=== PATIENT | female | born 1975 | race Caucasian/White ===

== ENCOUNTER 2022-10-19 02:25 | Inpatient (IN) ==
[2022-10-19] MEDS ORDERED: SODIUM CHLORIDE 0.9% 1000ML 1,000 ML IV STA (02:55)
[2022-10-19] MEDS ORDERED: ONDANSETRON INJ 2 MG/ML 2 ML VIAL IV STA (02:55)
[2022-10-19] MEDS ORDERED: MoRPHine SULFATE 4 MG/ML 1 ML CARP\\VIAL IV STA ×2 (02:55→05:37)
--- NOTE | 2022-10-19 02:59 | Emergency Department Note ---
History of Present Illness General Chief complaint: Abdominal Pain Stated complaint: ABD Time Seen by Provider: 10/19/22 02:49 History of Present Illness This 47-year-old presents to the ER complaining of abdominal pain tonight Location: Upper abdomen Quality: Painful Severity: Moderate Duration: Tonight Timing: Tonight Context: Patient was concerned and came in Modifying factors: better with rest; worse with palpation Patient had a hoagie and Oreo cookies tonight for dinner. Pain started about an hour ago. Patient states she is healthy with no active medical problems. No alcohol or drug use. Patient denies chest pain, dyspnea, fevers, urinary symptoms. Home Medications Medication Instructions Recorded Confirmed Type multivitamin with minerals-folic 500 tab PO DAILY 10/19/22 10/19/22 History acid 200 mcg chewable tablet (Multivitamin Gummies) Allergies Allergy/AdvReac Type Severity Reaction Status Date / Time No Known Allergies Allergy Verified 12/30/02 19:13 Past Med/Surg History Medical History No acute medical problems Surgical History (Updated 10/19/22 @ 02:57 by Letitia Blankenship PA-C) No pertinent past surgical history Social History Smoking Status: Never smoker Preferred Language: Latvian Feels Safe at Home: Yes Review of Systems A total of 10 systems reviewed and were otherwise negative Physical Exam Vital Signs Vital Signs - 24 hr 10/19/22 02:28 10/19/22 03:06 10/19/22 03:28 Temperature 36.6 C Temperature Source Temporal Artery Scan Pulse Rate 82 Pulse Rate [Finger] 69 Pulse Rate from SpO2 Sensor Pulse Rhythm Regular Pulse Strength Normal Respiratory Rate 20 20 Respiratory Effort / Characteristics Non-Labored Spontaneous Non-Labored Spontaneous Respiratory Depth Normal Normal Respiratory Pattern Regular Blood Pressure 129/83 Blood Pressure [Right Arm] 121/71 Blood Pressure Mean 98 Blood Pressure Mean [Right Arm] 87 Blood Pressure Position Sitting Pulse Oximetry 98 99 100 Oxygen Delivery Method Room Air Room Air Room Air Sepsis Recent Fever Within 48 Hours No Sepsis New/Unexplained Change in Mental Status N/A Sepsis Action Taken by Nursing No Action Required 10/19/22 05:07 10/19/22 05:34 Temperature Temperature Source Pulse Rate 71 Pulse Rate [Finger] 77 Pulse Rate from SpO2 Sensor 74 Pulse Rhythm Pulse Strength Respiratory Rate 18 19 Respiratory Effort / Characteristics Non-Labored Spontaneous Respiratory Depth Normal Respiratory Pattern Blood Pressure 101/66 Blood Pressure [Right Arm] 121/62 Blood Pressure Mean 77 Blood Pressure Mean [Right Arm] 81 Blood Pressure Position Pulse Oximetry 99 98 Oxygen Delivery Method Room Air Room Air Sepsis Recent Fever Within 48 Hours Sepsis New/Unexplained Change in Mental Status Sepsis Action Taken by Nursing VITALS: Vitals are noted on the nurse's note and reviewed by myself. Vital signs stable. GENERAL: Pleasant patient, in no acute distress, nondiaphoretic, well-developed well-nourished. SKIN: The skin was without rashes, erythema, edema, or bruising. There is no tenting of the skin. Capillary reflex less than 2 seconds. HEAD: Normocephalic atraumatic. EARS: External auditory canals clear, EYES: Pupils equal round and reactive to light and accommodation. Conjunctivae without injection, sclerae without icterus. Extraocular movements intact. NOSE: Patent, turbinates without inflammation or discharge. MOUTH: Mucous membranes moist. Pharynx without erythema or exudate. Uvula midline. Airway patent. Tongue does not deviate. NECK: Supple without nuchal rigidity. No lymphadenopathy. No thyromegaly. Cervical spine is nontender. No JVD. HEART: Regular rate and rhythm LUNGS: Clear to auscultation bilaterally without wheezes, rales or rhonchi. No retractions or accessory muscle use. ABDOMEN: Positive bowel sounds x 4. Normal tympanic percussion. Soft, tender upper abdomen without masses or organomegaly. No guarding or rebound tenderness. No CVA tenderness MUSCULOSKELETAL: No muscle atrophy, erythema, or edema noted. NEURO: Patient was alert and oriented to person place and time. Normal sensation to light and sharp touch. No focal neurological deficits. Course Administered Medications Lactated Ringer's (Lr) 1,000 mls @ 999 mls/hr IV .Q1H1M ONE Stop: 10/19/22 06:33 Last Admin: 10/19/22 06:08 Dose: 999 mls/hr Documented By: [facility] Discontinued Medications Sodium Chloride (Nss 1000ml) 1,000 mls @ 999 mls/hr IV .Q1H1M STA Stop: 10/19/22 03:55 Last Infusion: 10/19/22 04:26 Dose: 0 mls/hr Documented By: Admin: 10/19/22 03:03 Dose: 999 mls/hr Documented By: CARRIE Ioversol (Optiray 350 100ml) 87 ml IV ONCE ONE Stop: 10/19/22 04:41 Last Admin: 10/19/22 04:34 Dose: 87 ml Documented By: MEJIA Morphine Sulfate (Morphine Sulfate 4 Mg/Ml 1 Ml Carp\Vial) 4 mg IV NOW STA Stop: 10/19/22 02:56 Last Admin: 10/19/22 03:03 Dose: 4 mg Documented By: CARRIE Morphine Sulfate (Morphine Sulfate 4 Mg/Ml 1 Ml Carp\Vial) 4 mg IV NOW STA Stop: 10/19/22 05:38 Last Admin: 10/19/22 05:59 Dose: 4 mg Documented By: FARIHA Ondansetron HCl (Ondansetron Inj 2 Mg/Ml 2 Ml Vial) 4 mg IV NOW STA Stop: 10/19/22 02:56 Last Admin: 10/19/22 03:03 Dose: 4 mg Documented By: CARRIE Potassium Chloride (Potassium Chloride Crtab 20 Meq Tabcr) 20 meq PO NOW STA Stop: 10/19/22 05:41 Last Admin: 10/19/22 05:58 Dose: 20 meq Documented By: FARIHA Medical Decision Making Medical Records Attestation: I reviewed the patient's medical records. Home Medications Current Medication List: was personally reviewed by me Laboratory Data Attestation: I reviewed the patient's lab results. Result diagrams: 10/19/22 02:45 10/19/22 02:45 Lab Results 10/19/22 10/19/22 10/19/22 Range/Units 02:45 02:45 02:45 WBC 14.25 H (4.8-10.8) K/ul RBC 4.93 (3.93-5.22) M/uL Hgb 14.2 (12.0-16.0) g/dl Hct 43.0 (34.1-44.9) % MCV 87.2 (80.0-100.0) fL MCH 28.8 (25.0-34.0) pg MCHC 33.0 (32.0-36.0) g/dL RDW Std Deviation 40.1 (36.4-46.3) fL RDW Coeff of [place] 12.6 (11.5-14.5) % Plt Count 397 (130-400) K/uL MPV 10.5 (9.4-12.3) fL Immature Gran % (Auto) 0.7 % Neut % (Auto) 76.7 % Lymph % (Auto) 16.4 % [place] % (Auto) 4.2 % Eos % (Auto) 1.6 % Baso % (Auto) 0.4 % Neut # (Auto) 10.93 H (1.4-6.5) K/uL Lymph # (Auto) 2.33 (1.2-3.4) K/uL [place] # (Auto) 0.60 (0.24-0.82) K/uL Eos # (Auto) 0.23 (0-0.50) K/uL Baso # (Auto) 0.06 (0-0.2) K/uL Immature Gran # (Auto) 0.10 H (0.00-0.02) K/uL Sodium 138 (136-145) mmol/L Potassium 3.3 L (3.5-5.1) mmol/L Chloride 104 (98-107) mmol/L Carbon Dioxide 26 (21-32) mmol/L Anion Gap 8 (3-11) BUN 20 (6-23) mg/dl Creatinine 0.81 (0.6-1.2) mg/dl Est Cr Clr Drug Dosing 86.9 ml/min Est GFR ( Amer) 100.2 ml/min Est GFR (Non-Af Amer) 86.5 ml/min BUN/Creatinine Ratio 24.7 H (10-20) Glucose 169 H (70-99(Fasting)) mg/dl Calcium 9.0 (8.5-10.1) mg/dl Total Bilirubin 0.3 (0.2-1.0) mg/dl AST 30 (13-39) U/L ALT 27 (7-52) U/L Alkaline Phosphatase 58 (34-104) U/L Troponin I High Sens < 2.3 (0-14) pg/ml Total Protein 7.3 (6.0-8.3) gm/dl Albumin 4.3 (3.4-5.0) gm/dl Globulin 3.0 (2.5-4.0) gm/dl Albumin/Globulin Ratio 1.4 (0.9-2) Lipase 97928 H (11-82) U/L Urine Color Yellow Urine Appearance Clear (Clear) Urine pH 5.0 (4.5-7.5) Ur Specific [place] 1.023 (1.000-1.030) Urine Protein Trace H (Negative) Urine Glucose (UA) Negative (Negative) Urine Ketones Negative (Negative) Urine Blood 2+ H (Negative) Urine Nitrite Negative (Negative) Urine Bilirubin Negative (Negative) Urine Urobilinogen Negative (Negative) Ur Leukocyte Esterase Negative (Negative) Urine WBC (Auto) 1-5 (0-5) /hpf Urine RBC (Auto) 10-30 H (0-4) /hpf U Hyaline Cast (Auto) 1-5 (0-5) /lpf U Epithel Cells (Auto) >30 H (0-5) /lpf Urine Bacteria (Auto) Negative (Negative) POC Ur Test (NEG) SARS-CoV-2, RNA, NAAT (NEGATIVE) 10/19/22 10/19/22 Range/Units 02:45 03:00 WBC (4.8-10.8) K/ul RBC (3.93-5.22) M/uL Hgb (12.0-16.0) g/dl Hct (34.1-44.9) % MCV (80.0-100.0) fL MCH (25.0-34.0) pg MCHC (32.0-36.0) g/dL RDW Std Deviation (36.4-46.3) fL RDW Coeff of [place] (11.5-14.5) % Plt Count (130-400) K/uL MPV (9.4-12.3) fL Immature Gran % (Auto) % Neut % (Auto) % Lymph % (Auto) % [place] % (Auto) % Eos % (Auto) % Baso % (Auto) % Neut # (Auto) (1.4-6.5) K/uL Lymph # (Auto) (1.2-3.4) K/uL [place] # (Auto) (0.24-0.82) K/uL Eos # (Auto) (0-0.50) K/uL Baso # (Auto) (0-0.2) K/uL Immature Gran # (Auto) (0.00-0.02) K/uL Sodium (136-145) mmol/L Potassium (3.5-5.1) mmol/L Chloride (98-107) mmol/L Carbon Dioxide (21-32) mmol/L Anion Gap (3-11) BUN (6-23) mg/dl Creatinine (0.6-1.2) mg/dl Est Cr Clr Drug Dosing ml/min Est GFR ( Amer) ml/min Est GFR (Non-Af Amer) ml/min BUN/Creatinine Ratio (10-20) Glucose (70-99(Fasting)) mg/dl Calcium (8.5-10.1) mg/dl Total Bilirubin (0.2-1.0) mg/dl AST (13-39) U/L ALT (7-52) U/L Alkaline Phosphatase (34-104) U/L Troponin I High Sens (0-14) pg/ml Total Protein (6.0-8.3) gm/dl Albumin (3.4-5.0) gm/dl Globulin (2.5-4.0) gm/dl Albumin/Globulin Ratio (0.9-2) Lipase (11-82) U/L Urine Color Urine Appearance (Clear) Urine pH (4.5-7.5) Ur Specific [place] (1.000-1.030) Urine Protein (Negative) Urine Glucose (UA) (Negative) Urine Ketones (Negative) Urine Blood (Negative) Urine Nitrite (Negative) Urine Bilirubin (Negative) Urine Urobilinogen (Negative) Ur Leukocyte Esterase (Negative) Urine WBC (Auto) (0-5) /hpf Urine RBC (Auto) (0-4) /hpf U Hyaline Cast (Auto) (0-5) /lpf U Epithel Cells (Auto) (0-5) /lpf Urine Bacteria (Auto) (Negative) POC Ur Test NEG (NEG) SARS-CoV-2, RNA, NAAT NEGATIVE (NEGATIVE) Imaging Data Attestation: I personally reviewed and interpreted this imaging study as follows: MDM Narrative Prior records/ancillary studies reviewed. Triage Nursing notes reviewed. Additional history obtained from nursing The patient's history was concerning for abdominal pain. Differential diagnosis: Etiologies such as appendicitis, diverticulitis, PUD, biliary pathology, UTI, pancreatitis, obstruction, mesenteric ischemia, aortic pathology, infections, inflammatory bowel disease, renal colic, as well as others were entertained. Physical examination findings: As above. ER treatment provided: An order was placed for continuous cardiac monitoring. The monitor shows a rate of 60-100 with a sinus rhythm. Morphine Zofran IV fluids On reassessment the patient felt better. Diagnostics interpreted by me: ECG: Ordered for upper abdominal pain EKG: Normal sinus, normal intervals, no acute ST-T wave changes. Impression normal sinus rhythm interpreted by myself I think arrhythmia is unlikely. EKG shows normal sinus rhythm with no interval abnormalities such as QT prolongation or WPW. There are no findings to suggest Brugada syndrome. Cardiac monitoring in the emergency department reveals no tachycardic or bradycardic dysrhythmia. Hypertrophic cardiomyopathy was considered but there are no clear historical elements pointing toward this. EKG is not suggestive. The QRS voltage is not extremely large and there are no sugg estive Q waves. The labs revealed elevated lipase. Leukocytosis, negative troponin Imaging studies: as above Consultation: A consultation was placed with the hospitalist. The case was discussed and diagnostics were reviewed. The patient was evaluated in the ER for further treatment. Exam and history seem consistent with pancreatitis. Patient was medicated as above. She states she does not drink alcohol. She does not take any medicines. No history of this. Medicine is consulted. She will be evaluated for admission. By the evaluation outlined above emergent etiologies such as a ppendicitis, diverticulitis, PUD, biliary pathology, UTI, obstruction, mesenteric ischemia, aortic pathology, infections, inflammatory bowel disease, renal colic, as well as others were deemed relatively unlikely. The pt informed about the findings as listed above. All questions were answered and pleased with the treatment. The chart was completed utilizing [employer] Speech voice recognition software. Grammatical errors, random word insertions, pronoun errors, and incomplete sentences are an occassional consequence of this system due to software limitations, ambient noise, and hardware issues. Any formal questions or concerns about the content, text, or information contained within the body of this dictation should be directly addressed to the physician assistant import manager for clarification. Impression & Plan Pancreatitis Discharge Plan Visit Data Chief Complaint: Abdominal Pain Stated Complaint: ABD ED Provider: Marixa Butts ED Midlevel Provider: Letitia Blankenship Discharge Problem: Pancreatitis Patient Disposition: Admitted As Inpatient Condition: Good Forms Stand Alone Forms: [facility] [employer] Prescriptions Prescriptions: No Action Multivitamin Gummies 200 mcg Tablet,Chewable 500 tab PO DAILY Referrals Referrals: PCP,NO [Primary Care Provider] - : Pancreatitis Qualifiers: Chronicity: acute Pancreatitis type: unspecified pancreatitis type Acute pancreatitis complication: unspecified Qualified Code(s): K85.90 - Acute pancreatitis without necrosis or infection, unspecified
[2022-10-19 03:06] LABS: Basophils # (auto) 0.06 K/uL (0-0.2); Basophils % (auto) 0.4 %; Eosinophils # (auto) 0.23 K/uL (0-0.50); Eosinophils % (auto) 1.6 %; Hemoglobin 14.2 g/dl (12.0-16.0); Immature Granulocytes % (auto) 0.7 %; Lymphocytes # (auto) 2.33 K/uL (1.2-3.4); Lymphocytes % (auto) 16.4 %; Mean Corpuscular Hemoglobin 28.8 pg (25.0-34.0); Mean Corpuscular Volume 87.2 fL (80.0-100.0); Mean Platelet Volume 10.5 fL (9.4-12.3); Monocytes % (auto) 4.2 %; Neutrophils # (auto) 10.93 K/uL (1.4-6.5); Neutrophils % (auto) 76.7 %; Platelet Count 397 K/uL (130-400); RDW Coefficient of Variation 12.6 % (11.5-14.5); RDW Standard Deviation 40.1 fL (36.4-46.3); Red Blood Count 4.93 M/uL (3.93-5.22); White Blood Count 14.25 K/ul (4.8-10.8)
[2022-10-19 03:08] LABS: Appearance Urine Clear (Clear); Bacteria Urine Automated Negative (Negative); Bilirubin Urine Negative (Negative); Blood Urine 2+ (Negative); Color Urine Yellow; Epithelial Cell Urine Auto >30 /lpf (0-5); Glucose Urine UA Negative (Negative); Ketones Urine Negative (Negative); Leukocyte Esterase Urine Negative (Negative); Nitrite Urine Negative (Negative); Protein Urine Trace (Negative); Specific Gravity Urine 1.023 (1.000-1.030); Urobilinogen Urine Negative (Negative)
[2022-10-19 03:37] LABS: Troponin I High Sensitivity < 2.3 pg/ml (0-14)
[2022-10-19 03:53] LABS: Anion Gap 8 (3-11); BUN Creatinine Ratio 24.7 (10-20); Blood Urea Nitrogen 20 mg/dl (6-23); Carbon Dioxide 26 mmol/L (21-32); Chloride 104 mmol/L (98-107); Creatinine Clr Calc Pharmacy 86.9 ml/min; Est GFR (African American) 100.2 ml/min; Est GFR (Non-African American) 86.5 ml/min; Glucose 169 mg/dl (70-99(Fasting)); Potassium 3.3 mmol/L (3.5-5.1); Sodium 138 mmol/L (136-145)
[2022-10-19 04:19] LABS: Alanine Aminotransferase 27 U/L (7-52); Albumin Globulin Ratio 1.4 (0.9-2); Albumin Level 4.3 gm/dl (3.4-5.0); Alkaline Phosphatase 58 U/L (34-104); Aspartate Aminotransferase 30 U/L (13-39); Bilirubin,Total 0.3 mg/dl (0.2-1.0); Total Protein 7.3 gm/dl (6.0-8.3)
[2022-10-19] MEDS ORDERED: OPTIRAY 350 100ml IV ONE (04:40)
[2022-10-19 04:57] LABS: Lipase 14900 U/L (11-82)
[2022-10-19] MEDS ORDERED: LACTATED RINGER'S 1,000 ML IV ONE ×2 (05:33→06:52)
[2022-10-19] MEDS ORDERED: POTASSIUM CHLORIDE CRTAB 20 MEQ TABCR PO STA (05:40)
--- NOTE | 2022-10-19 06:08 | Ultrasound Report ---
ULTRASOUND RIGHT UPPER QUADRANT ABDOMEN CLINICAL HISTORY: Right upper quadrant abdominal pain. COMPARISON STUDY: No priors. TECHNIQUE: Real-time, grayscale, and color flow sonography of the right upper quadrant of the abdomen was performed. Images are reviewed in the transverse and longitudinal planes. FINDINGS: Liver: The liver is normal in size and echotexture. There is no intrahepatic biliary ductal dilatatio n. The main portal vein is patent. A 2.6 cm cyst is noted in the left lobe. Gallbladder: The gallbladder is normal in appearance. No gallstones are identified. There is no gallb ladder wall thickening or pericholecystic fluid. A sonographic Pearson's sign is reportedly absent. Th e common bile duct measures up to 0.3 cm in diameter. Pancreas: Visualized portions of the pancreatic head and body are normal in appearance. Right kidney: Survey images of the right kidney demonstrate normal size and echotexture. There is no hydronephrosis. Ascites: None. IMPRESSION: Unremarkable sonographic examination of the right upper quadrant. No gallstones are ident ified. ACT 112: Negative or not required by law. Electronically signed by: Jose Manuel Jefferson M.D. 10/19/2022 6:05 AM
--- NOTE | 2022-10-19 06:19 | CT Scan Report ---
CT SCAN OF THE ABDOMEN AND PELVIS WITH IV CONTRAST CLINICAL HISTORY: Mid abdominal pain. Nausea and vomiting. Diarrhea. COMPARISON STUDY: Abdominal ultrasound dated 10/19/2022. TECHNIQUE: Following the IV administration of 87 cc of Optiray 350, CT scan of the abdomen and pelvi s is performed from the lung bases to the proximal femora. Images are reviewed in the axial, sagittal , and coronal planes. IV contrast was administered without complication. A dose lowering technique wa s utilized adhering to the principles of ALARA. CT DOSE: 397.08 mGy.cm FINDINGS: Lung bases: The heart is normal in size and without pericardial effusion. The lung bases are clear. Liver: The contrast-enhanced liver is normal in size, contour, and attenuation. There is no intrahepa tic biliary ductal dilatation. The hepatic veins and portal veins are patent. There is a 2.5 cm right lobe cyst. Gallbladder: Unremarkable. Spleen: Normal in size and attenuation. Pancreas: The pancreas appears edematous, and there is peripancreatic inflammation and fluid. The gla nd enhances throughout. The duct is normal in caliber. No organized peripancreatic fluid collection i s identified. Adrenal glands: Unremarkable. Kidneys: The contrast enhanced kidneys are normal in size and without hydronephrosis. The kidneys enh ance symmetrically. Abdominal vasculature: The abdominal aorta is normal in course and caliber. Bowel: There is no bowel obstruction. A small duodenal diverticulum is incidentally noted. The append ix is well-visualized and normal. Peritoneum: There is trace perisplenic ascites, as well as fluid tracking inferiorly in the retroperi toneum and paracolic gutters. No intraperitoneal free air is identified. Lymphadenopathy: None. Pelvic viscera: The bladder, uterus, and adnexa are unremarkable as visualized noting ovarian follicl es. Skeletal structures: No lytic or blastic lesions are seen. IMPRESSION: 1. Findings are consistent with acute pancreatitis. 2. The gland enhances throughout and there is no organized peripancreatic fluid collection. 3. Small volume ascites. 4. Additional findings as above. ACT 112: Negative or not required by law. Electronically signed by: Jose Manuel Jefferson M.D. 10/19/2022 6:17 AM
--- NOTE | 2022-10-19 06:52 | History & Physical Report ---
Date of Service October 19, 2022 Assessment & Plan (1) Pancreatitis: Plan: ? Precipitated by recent fatty food intake Rule out hypertriglyceridemia, history hyperlipidemia not on medications Prediabetes, hemoglobin A1c of 5.7 last November 2021 Hypokalemia secondary to emesis GMF Bowel rest, IVF, analgesia Check serum triglyceride level GI consult Re: Acute pancreatitis Replace electrolytes DVT prophylaxis per Lovenox subcu Full code Text document was generated using [employer] voice recognition software. It may contain grammatical or spelling errors. Kindly contact undersigned for clarification of any documentation item in question. History of Present Illness Chief Complaint: Abdominal pain Primary Care Provider: Dr. Helen Day History obtained from patient and records. Medical history significant for prediabetes, hyperlipidemia. Last confinement under OB service 2001 for missed status post D&C. Yesterday morning around 1 AM, patient woke up with back pain later achy abdominal pain persisting throughout the day followed by 2 bouts of emesis. No fever, no chills. No chest pain, no shortness of breath. 2 nights ago, patient dined at a [place] restaurant where she had a relatively heavy meal. No recent EtOH intake. No prior episodes. Patient brought to the ER by her . 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 Allergies Allergy/AdvReac Type Severity Reaction Status Date / Time No Known Allergies Allergy Verified 12/30/02 19:13 Home Medications Medication Instructions Recorded Confirmed Type multivitamin with minerals-folic 500 tab PO DAILY 10/19/22 10/19/22 History acid 200 mcg chewable tablet (Multivitamin Gummies) Past Med/Surg History Medical History No acute medical problems Surgical History (Updated 10/19/22 @ 02:57 by Letitia Blankenship PA-C) No pertinent past surgical history Social History Smoking Status: Never smoker Preferred Language: Welsh Feels Safe at Home: Yes Review of Systems Review of Systems: As per HPI, all other systems reviewed and negative Physical Exam Physical Exam: GENERAL: Comfortable, pleasant, no respiratory distress SKIN: Normal color, warm HEENT: Bespectacled, Morgan palpebral conjunctivae, no ptosis, moist buccal mucosa NECK : Supple, no tenderness CHEST : CTA, no tenderness HEART : RRR, no obvious murmurs ABDOMEN: Some distention, epigastric tenderness EXTREMITIES : No LE swelling/tenderness, no other conspicuous deformities noted NEUROLOGIC : Coherent, no facial asymmetry, no other gross focality Results & Data Results & Data ([facility]) Vital Signs (Past 12 Hours) Vital Signs Temp Pulse Pulse Resp BP BP Pulse Ox 10/19/22 05:34 71 19 101/66 98 10/19/22 05:07 77 18 121/62 99 10/19/22 03:28 69 20 121/71 100 10/19/22 03:06 99 10/19/22 02:28 36.6 C 82 20 129/83 98 O2 Del Method 10/19/22 05:34 Room Air 10/19/22 05:07 Room Air 10/19/22 03:28 Room Air 10/19/22 03:06 Room Air 10/19/22 02:28 Room Air Laboratory Results Laboratory Results WBC 14.25 K/ul (4.8-10.8) H 10/19/22 02:45 RBC 4.93 M/uL (3.93-5.22) 10/19/22 02:45 Hgb 14.2 g/dl (12.0-16.0) 10/19/22 02:45 Hct 43.0 % (34.1-44.9) 10/19/22 02:45 MCV 87.2 fL (80.0-100.0) 10/19/22 02:45 MCH 28.8 pg (25.0-34.0) 10/19/22 02:45 MCHC 33.0 g/dL (32.0-36.0) 10/19/22 02:45 RDW Std Deviation 40.1 fL (36.4-46.3) 10/19/22 02:45 RDW Coeff of [place] 12.6 % (11.5-14.5) 10/19/22 02:45 Plt Count 397 K/uL (130-400) 10/19/22 02:45 MPV 10.5 fL (9.4-12.3) 10/19/22 02:45 Immature Gran % (Auto) 0.7 % 10/19/22 02:45 Neut % (Auto) 76.7 % 10/19/22 02:45 Lymph % (Auto) 16.4 % 10/19/22 02:45 [place] % (Auto) 4.2 % 10/19/22 02:45 Eos % (Auto) 1.6 % 10/19/22 02:45 Baso % (Auto) 0.4 % 10/19/22 02:45 Neut # (Auto) 10.93 K/uL (1.4-6.5) H 10/19/22 02:45 Lymph # (Auto) 2.33 K/uL (1.2-3.4) 10/19/22 02:45 [place] # (Auto) 0.60 K/uL (0.24-0.82) 10/19/22 02:45 Eos # (Auto) 0.23 K/uL (0-0.50) 10/19/22 02:45 Baso # (Auto) 0.06 K/uL (0-0.2) 10/19/22 02:45 Immature Gran # (Auto) 0.10 K/uL (0.00-0.02) H 10/19/22 02:45 Sodium 138 mmol/L (136-145) 10/19/22 02:45 Potassium 3.3 mmol/L (3.5-5.1) L 10/19/22 02:45 Chloride 104 mmol/L (98-107) 10/19/22 02:45 Carbon Dioxide 26 mmol/L (21-32) 10/19/22 02:45 Anion Gap 8 (3-11) 10/19/22 02:45 BUN 20 mg/dl (6-23) 10/19/22 02:45 Creatinine 0.81 mg/dl (0.6-1.2) 10/19/22 02:45 Est Cr Clr Drug Dosing 86.9 ml/min 10/19/22 02:45 Est GFR ( Amer) 100.2 ml/min 10/19/22 02:45 Est GFR (Non-Af Amer) 86.5 ml/min 10/19/22 02:45 BUN/Creatinine Ratio 24.7 (10-20) H 10/19/22 02:45 Glucose 169 mg/dl (70-99(Fasting)) H 10/19/22 02:45 Calcium 9.0 mg/dl (8.5-10.1) 10/19/22 02:45 Total Bilirubin 0.3 mg/dl (0.2-1.0) 10/19/22 02:45 AST 30 U/L (13-39) 10/19/22 02:45 ALT 27 U/L (7-52) 10/19/22 02:45 Alkaline Phosphatase 58 U/L (34-104) 10/19/22 02:45 Troponin I High Sens < 2.3 pg/ml (0-14) 10/19/22 02:45 Total Protein 7.3 gm/dl (6.0-8.3) 10/19/22 02:45 Albumin 4.3 gm/dl (3.4-5.0) 10/19/22 02:45 Globulin 3.0 gm/dl (2.5-4.0) 10/19/22 02:45 Albumin/Globulin Ratio 1.4 (0.9-2) 10/19/22 02:45 Lipase 44182 U/L (11-82) H 10/19/22 02:45 Urine Color Yellow 10/19/22 02:45 Urine Appearance Clear (Clear) 10/19/22 02:45 Urine pH 5.0 (4.5-7.5) 10/19/22 02:45 Ur Specific [place] 1.023 (1.000-1.030) 10/19/22 02:45 Urine Protein Trace (Negative) H 10/19/22 02:45 Urine Glucose (UA) Negative (Negative) 10/19/22 02:45 Urine Ketones Negative (Negative) 10/19/22 02:45 Urine Blood 2+ (Negative) H 10/19/22 02:45 Urine Nitrite Negative (Negative) 10/19/22 02:45 Urine Bilirubin Negative (Negative) 10/19/22 02:45 Urine Urobilinogen Negative (Negative) 10/19/22 02:45 Ur Leukocyte Esterase Negative (Negative) 10/19/22 02:45 Urine WBC (Auto) 1-5 /hpf (0-5) 10/19/22 02:45 Urine RBC (Auto) 10-30 /hpf (0-4) H 10/19/22 02:45 U Hyaline Cast (Auto) 1-5 /lpf (0-5) 10/19/22 02:45 U Epithel Cells (Auto) >30 /lpf (0-5) H 10/19/22 02:45 Urine Bacteria (Auto) Negative (Negative) 10/19/22 02:45 POC Ur Test NEG (NEG) 10/19/22 02:45 SARS-CoV-2, RNA, NAAT NEGATIVE (NEGATIVE) 10/19/22 03:00 Impressions Gallbladder Ultrasound 10/19/22 02:55 ULTRASOUND RIGHT UPPER QUADRANT ABDOMEN CLINICAL HISTORY: Right upper quadrant abdominal pain. COMPARISON STUDY: No priors. TECHNIQUE: Real-time, grayscale, and color flow sonography of the right upper quadrant of the abdomen was performed. Images are reviewed in the transverse and longitudinal planes. FINDINGS: Liver: The liver is normal in size and echotexture. There is no intrahepatic biliary ductal dilatation. The main portal vein is patent. A 2.6 cm cyst is noted in the left lobe. Gallbladder: The gallbladder is normal in appearance. No gallstones are identified. There is no gallbladder wall thickening or pericholecystic fluid. A sonographic Pearson's sign is reportedly absent. The common bile duct measures up to 0.3 cm in diameter. Pancreas: Visualized portions of the pancreatic head and body are normal in appearance. Right kidney: Survey images of the right kidney demonstrate normal size and echotexture. There is no hydronephrosis. Ascites: None. IMPRESSION: Unremarkable sonographic examination of the right upper quadrant. No gallstones are identified. ACT 112: Negative or not required by law. Electronically signed by: Jose Manuel Jefferson M.D. 10/19/2022 6:05 AM Abdomen/Pelvis CT 10/19/22 03:50 CT SCAN OF THE ABDOMEN AND PELVIS WITH IV CONTRAST CLINICAL HISTORY: Mid abdominal pain. Nausea and vomiting. Diarrhea. COMPARISON STUDY: Abdominal ultrasound dated 10/19/2022. TECHNIQUE: Following the IV administration of 87 cc of Optiray 350, CT scan of the abdomen and pelvis is performed from the lung bases to the proximal femora. Images are reviewed in the axial, sagittal, and coronal planes. IV contrast was administered without complication. A dose lowering technique was utilized adhering to the principles of ALARA. CT DOSE: 397.08 mGy.cm FINDINGS: Lung bases: The heart is normal in size and without pericardial effusion. The lung bases are clear. Liver: The contrast-enhanced liver is normal in size, contour, and attenuation. There is no intrahepatic biliary ductal dilatation. The hepatic veins and portal veins are patent. There is a 2.5 cm right lobe cyst. Gallbladder: Unremarkable. Spleen: Normal in size and attenuation. Pancreas: The pancreas appears edematous, and there is peripancreatic inflammation and fluid. The gland enhances throughout. The duct is normal in caliber. No organized peripancreatic fluid collection is identified. Adrenal glands: Unremarkable. Kidneys: The contrast enhanced kidneys are normal in size and without hydronephrosis. The kidneys enhance symmetrically. Abdominal vasculature: The abdominal aorta is normal in course and caliber. Bowel: There is no bowel obstruction. A small duodenal diverticulum is incidentally noted. The appendix is well-visualized and normal. Peritoneum: There is trace perisplenic ascites, as well as fluid tracking inferiorly in the retroperitoneum and paracolic gutters. No intraperitoneal free air is identified. Lymphadenopathy: None. Pelvic viscera: The bladder, uterus, and adnexa are unremarkable as visualized noting ovarian follicles. Skeletal structures: No lytic or blastic lesions are seen. IMPRESSION: 1. Findings are consistent with acute pancreatitis. 2. The gland enhances throughout and there is no organized peripancreatic fluid collection. 3. Small volume ascites. 4. Additional findings as above. ACT 112: Negative or not required by law. Electronically signed by: Jose Manuel Jefferson M.D. 10/19/2022 6:17 AM Diagnostic Findings EKG as per my interpretation : Rate 70, NSR, normal axis, no ischemia (1) Pancreatitis Acute pancreatitis complication: unspecified Chronicity: acute Pancreatitis type: unspecified pancreatitis type Qualified Code(s): K85.90 - Acute pancreatitis without necrosis or infection, unspecified
[2022-10-19] MEDS ORDERED: traMADol HCL 50 MG TABLET PO PRN (06:55)
[2022-10-19] MEDS ORDERED: PROMETHAZINE HCL 12.5 MG in SODIUM CHLORIDE 0.9% 50 ML IV PRN (06:55)
[2022-10-19] MEDS ORDERED: ACETAMINOPHEN 325 MG TAB PO PRN (09:50)
[2022-10-19] MEDS: MAGNESIUM SULFATE / D5W 1 GM/100 ML BAG IV SCH ×2 (10:29→10:30)
[2022-10-19] MEDS: ENOXAPARIN INJ 40 MG/0.4 ML SYR SQ SCH (12:41)
[2022-10-19] MEDS: LACTATED RINGER'S 1,000 ML IV SCH ×2 (13:09→17:59)
[2022-10-19] MEDS: KETOROLAC TROMETHAMINE 15 MG/ML VIAL IV PRN ×2 (13:09→19:26)
--- NOTE | 2022-10-19 14:38 | Electrocardiogram Report ---
Test Reason : Blood Pressure : / mmHG Vent. Rate : 071 BPM Atrial Rate : 071 BPM P-R Int : 176 ms QRS Dur : 080 ms QT Int : 398 ms P-R-T Axes : 039 020 022 degrees QTc Int : 432 ms Normal sinus rhythm Normal ECG No previous ECGs available Confirmed by Aime Trevino ([id number]) on 10/19/2022 2:38:16 PM Referred By: REFERRED SELF Confirmed By:Aime Trevino
--- NOTE | 2022-10-19 14:46 | Communication Note ---
Date of Service: October 19, 2022 Patient seen and examined at bedside in the emergency department. She is admitted with acute pancreatitis. LFTs are within normal limits. Ultrasound of the gallbladder did not show any gallstone. She does not drink alcohol, triglyceride within normal limits and is not on any medications. Discussed with GI; idiopathic pancreatitis. Recommend to continue IV fluids and supportive care and advance diet as tolerated.
--- NOTE | 2022-10-19 16:22 | Gastrointestinal Consultation ---
Date of Consultation October 19, 2022 Assessment & Plan (1) Pancreatitis: Discussed case in detail with Dr. Steffen Kauffman of Hospitalist team No evidence of gallstones or alcohol use. Other causes include Drug induced, Hereditary, Hypertriglyceridemia, Viral or Idiopathic. Recommend aggressive fluid hydration, antiemetics and narcotic analgesics as needed Advance diet to low fat diet as tolerated I will follow her clinical course and make further recommendations as needed. History of Present Illness Reason for Consultation: Pancreatitis Attending Physician: Steffen Kauffman MD History of Present Illness Maricel Bernard is a 47 yo CF who presented to the ER early this AM with complaints of epigastric pain radiating to her back as well as nausea and vomiting. Upon arrival to the ER, she was noted to have a slightly elevated WBC count and a lipase level >14,000. She subsequently underwent a normal RUQ US, and a CT abd/pelvis which showed findings consistent with pancreatitis, however, no evidence of gallstones or biliary ductal dilation. She was subsequently given aggressive IV fluid hydration, antiemetics, and naroctic analgesics. At the time I saw her, she continued to complain of mid-epigastric pain, described as 4/10 in intensity, and radiating to her back. She has not had any further vomiting since her arrival. She states that she has never had pancreatitis before, has no family history of pancreatitis, and does not drink alcohol. She further denies any recent cold or flu symptoms, and has not taken any new medications. She denies fever, chills, jaundice, acholic stools, dark urine or pruritus and has no further complaints. Allergies Allergy/AdvReac Type Severity Reaction Status Date / Time No Known Allergies Allergy Verified 12/30/02 19:13 Home Medications Medication Instructions Recorded Confirmed Type multivitamin with minerals-folic 500 tab PO DAILY 10/19/22 10/19/22 History acid 200 mcg chewable tablet (Multivitamin Gummies) Patient History Medical History No acute medical problems Surgical History No pertinent past surgical history Social History Smoking Status: Never smoker Hx Alcohol Use: No Hx Substance Use: No Preferred Language: Guatemalan Communication Ability: Effective Director Of Valuation Required: No Beliefs That Will Affect Care: None Current Living Situation: Spouse Other Information That Helps Us Care for You: No Feels Safe at Home: Yes Safety Concerns: Feels Safe At This Time Assistive Devices: None Review of Systems Review of Systems: All systems reviewed & are unremarkable except as noted in Subjective Physical Exam Constitutional: WD/WN, vitals as above Eyes: + anicteric sclerae ENMT: external ear and nose normal, oropharynx normal Neck: normal visual inspection Respiratory: normal respiratory effort, lungs clear to auscultation Cardiovascular: RRR, no murmur, no edema Gastrointestinal (Abdomen): Inspection/Auscultation: abdomen normal to inspe ction and normal bowel sounds; abdomen not distended Percussion/Palpation: + abdomen tender (Epigastric and LUQ) and abdomen soft; no guarding and abdomen not rigid Skin: no rashes, warm and dry Psychiatric: A+Ox3, euthymic affect Results & Data ([facility]) Vital Signs (Past 12 Hours) Vital Signs Temp Pulse Pulse Resp BP BP Pulse Ox 10/19/22 15:49 36.9 C 73 16 110/66 97 10/19/22 14:03 36.8 C 74 14 108/69 98 10/19/22 13:00 83 16 118/67 97 10/19/22 12:37 68 17 112/63 94 10/19/22 10:39 10/19/22 10:39 16 10/19/22 10:39 10/19/22 07:10 77 20 118/69 98 10/19/22 05:34 71 19 101/66 98 10/19/22 05:07 77 18 121/62 99 O2 Del Method 10/19/22 15:49 Room Air 10/19/22 14:03 Room Air 10/19/22 13:00 Room Air 10/19/22 12:37 Room Air 10/19/22 10:39 Room Air 10/19/22 10:39 10/19/22 10:39 Room Air 10/19/22 07:10 Room Air 10/19/22 05:34 Room Air 10/19/22 05:07 Room Air PG Care Time/CCT Total # of Minutes Spent Total Time Spent with Patient: Total time spent is greater than 50% in coordination of care (as documented) at patient's floor/unit and/or counseling patient: Coding Level of Care Code 94872 Inpt Consult Level 4 Diagnoses Pancreatitis K85.90 Acute pancreatitis complication: unspecified Chronicity: acute Pancreatitis type: unspecified pancreatitis type (1) Pancreatitis Acute pancreatitis complication: unspecified Chronicity: acute Pancreatitis type: unspecified pancreatitis type Qualified Code(s): K85.90 - Acute panc reatitis without necrosis or infection, unspecified
[2022-10-20] MEDS: LACTATED RINGER'S 1,000 ML IV SCH ×3 (01:11→20:30)
[2022-10-20 08:54] LABS: Basophils # (auto) 0.01 K/uL (0-0.2); Basophils % (auto) 0.1 %; Eosinophils # (auto) 0.02 K/uL (0-0.50); Eosinophils % (auto) 0.2 %; Hematocrit (blood only) 36.8 % (34.1-44.9); Hemoglobin 12.3 g/dl (12.0-16.0); Immature Granulocytes # (auto) 0.05 K/uL (0.00-0.02); Immature Granulocytes % (auto) 0.4 %; Lymphocytes # (auto) 0.74 K/uL (1.2-3.4); Lymphocytes % (auto) 6.5 %; Mean Corpuscular Hemoglobin 28.6 pg (25.0-34.0); Mean Corpuscular Hgb Conc 33.4 g/dL (32.0-36.0); Mean Corpuscular Volume 85.6 fL (80.0-100.0); Mean Platelet Volume 10.9 fL (9.4-12.3); Monocytes # (auto) 0.51 K/uL (0.24-0.82); Monocytes % (auto) 4.5 %; Neutrophils # (auto) 9.98 K/uL (1.4-6.5); Neutrophils % (auto) 88.3 %; Platelet Count 295 K/uL (130-400); RDW Coefficient of Variation 12.7 % (11.5-14.5); RDW Standard Deviation 39.7 fL (36.4-46.3); White Blood Count 11.31 K/ul (4.8-10.8)
[2022-10-20] MEDS: CEROVITE ADV FORMULA TAB PO SCH (09:00)
[2022-10-20] MEDS: ENOXAPARIN INJ 40 MG/0.4 ML SYR SQ SCH (09:00)
[2022-10-20 11:19] LABS: Albumin Globulin Ratio 1.5 (0.9-2); Albumin Level 3.5 gm/dl (3.4-5.0); BUN Creatinine Ratio 17.6 (10-20); Bilirubin,Total 0.9 mg/dl (0.2-1.0); Calcium 8.1 mg/dl (8.5-10.1); Est GFR (African American) 132.7 ml/min; Est GFR (Non-African American) 114.5 ml/min; Globulin 2.4 gm/dl (2.5-4.0); Magnesium 1.8 mg/dl (1.7-2.4); Potassium 3.6 mmol/L (3.5-5.1); Total Protein 5.9 gm/dl (6.0-8.3)
[2022-10-20] MEDS: KETOROLAC TROMETHAMINE 15 MG/ML VIAL IV PRN (12:50)
--- NOTE | 2022-10-20 14:44 | Hospitalist Progress Note ---
Date of Service October 20, 2022 Assessment & Plan (1) Acute pancreatitis: Plan: Patient presented to the hospital with epigastric pain radiating to back after eating fatty meal. No history of alcohol use Lipase 14,900 CT abdomen pelvis shows findings consistent with acute pancreatitis. Ultrasound gallbladder did not show any stones. Triglyceride 173 Plan; We will advance her diet to low-fat. - Decrease fluid rate to 75 cc/h. - Pain control with Toradol and tramadol. - Discussed with GI; no obvious cause for pancreatitis. Likely idiopathic in nature; no further testing at the moment. Plan DVT Lovenox Full code Dispositionpossible discharge in a.m. if she tolerates low-fat diet and pain is well controlled. Admission and Anticipated Discharge Date Admission Date: October 19, 2022 Subjective patient sitting up on the bed eating breakfast. Complains of pain in epigastric region. She is voiding well. Complains of dizziness on standing and walking. Review of Systems Review of Systems: All systems reviewed & are unremarkable except as noted in Subjective Physical Exam Physical Exam: Constitutional: WD/WN, vitals as above, NAD, sitting up in bed, pleasant, conversing easily Neck: trachea midline, no thyromegaly normal visual inspection Respiratory: normal respiratory effort, lungs clear to auscultation, no wheeze, rales, rhonchi. Normal insp/exp effort, no accessory muscle use Cardiovascular: RRR, no murmur, no edema Vessels: no JVD or carotid bruit Chest: normal inspection of chest Abdomen: slight tenderness in epigastric region. Musculoskeletal: no cyanosis or clubbing, extremities motor strength 5/5 Skin: no rashes, warm and dry normal turgor Neurologic: PERRL, EOMI, accommodation nl, no face palsy, no dysarthria CN's II- XI intact bilaterally and moves all extremities Psychiatric: A+Ox3, euthymic affect Lymphatic: no cervical or axillary lymphadenopathy : deferred Results & Data Results & Data ([facility]) Vital Signs (Past 12 Hours) Vital Signs Temp Pulse Resp BP Pulse Ox O2 Del Method 10/20/22 08:12 36.9 C 92 H 16 121/72 95 Room Air Laboratory Results Laboratory Results WBC 11.31 K/ul (4.8-10.8) H 10/20/22 07:56 RBC 4.30 M/uL (3.93-5.22) 10/20/22 07:56 Hgb 12.3 g/dl (12.0-16.0) 10/20/22 07:56 Hct 36.8 % (34.1-44.9) 10/20/22 07:56 MCV 85.6 fL (80.0-100.0) 10/20/22 07:56 MCH 28.6 pg (25.0-34.0) 10/20/22 07:56 MCHC 33.4 g/dL (32.0-36.0) 10/20/22 07:56 RDW Std Deviation 39.7 fL (36.4-46.3) 10/20/22 07:56 RDW Coeff of Chs[place] 12.7 % (11.5-14.5) 10/20/22 07:56 Plt Count 295 K/uL (130-400) 10/20/22 07:56 MPV 10.9 fL (9.4-12.3) 10/20/22 07:56 Immature Gran % (Auto) 0.4 % 10/20/22 07:56 Neut % (Auto) 88.3 % 10/20/22 07:56 Lymph % (Auto) 6.5 % 10/20/22 07:56 [place] % (Auto) 4.5 % 10/20/22 07:56 Eos % (Auto) 0.2 % 10/20/22 07:56 Baso % (Auto) 0.1 % 10/20/22 07:56 Neut # (Auto) 9.98 K/uL (1.4-6.5) H 10/20/22 07:56 Lymph # (Auto) 0.74 K/uL (1.2-3.4) L 10/20/22 07:56 [place] # (Auto) 0.51 K/uL (0.24-0.82) 10/20/22 07:56 Eos # (Auto) 0.02 K/uL (0-0.50) 10/20/22 07:56 Baso # (Auto) 0.01 K/uL (0-0.2) 10/20/22 07:56 Immature Gran # (Auto) 0.05 K/uL (0.00-0.02) H 10/20/22 07:56 Sodium 134 mmol/L (136-145) L 10/20/22 07:56 Potassium 3.6 mmol/L (3.5-5.1) 10/20/22 07:56 Chloride 104 mmol/L (98-107) 10/20/22 07:56 Carbon Dioxide 24 mmol/L (21-32) 10/20/22 07:56 Anion Gap 6 (3-11) 10/20/22 07:56 BUN 9 mg/dl (6-23) 10/20/22 07:56 Creatinine 0.51 mg/dl (0.6-1.2) L D 10/20/22 07:56 Est Cr Clr Drug Dosing 138.0 ml/min 10/20/22 07:56 Est GFR ( Amer) 132.7 ml/min 10/20/22 07:56 Est GFR (Non-Af Amer) 114.5 ml/min 10/20/22 07:56 BUN/Creatinine Ratio 17.6 (10-20) 10/20/22 07:56 Glucose 104 mg/dl (70-99(Fasting)) H 10/20/22 07:56 Calcium 8.1 mg/dl (8.5-10.1) L 10/20/22 07:56 Magnesium 1.8 mg/dl (1.7-2.4) 10/20/22 07:56 Total Bilirubin 0.9 mg/dl (0.2-1.0) D 10/20/22 07:56 AST 14 U/L (13-39) 10/20/22 07:56 ALT 16 U/L (7-52) 10/20/22 07:56 Alkaline Phosphatase 43 U/L (34-104) 10/20/22 07:56 Troponin I High Sens < 2.3 pg/ml (0-14) 10/19/22 02:45 Total Protein 5.9 gm/dl (6.0-8.3) L 10/20/22 07:56 Albumin 3.5 gm/dl (3.4-5.0) 10/20/22 07:56 Globulin 2.4 gm/dl (2.5-4.0) L 10/20/22 07:56 Albumin/Globulin Ratio 1.5 (0.9-2) 10/20/22 07:56 Triglycerides 173 mg/dl (0-150) H 10/19/22 02:45 Lipase 88140 U/L (11-82) H 10/19/22 02:45 Urine Color Yellow 10/19/22 02:45 Urine Appearance Clear (Clear) 10/19/22 02:45 Urine pH 5.0 (4.5-7.5) 10/19/22 02:45 Ur Specific [place] 1.023 (1.000-1.030) 10/19/22 02:45 Urine Protein Trace (Negative) H 10/19/22 02:45 Urine Glucose (UA) Negative (Negative) 10/19/22 02:45 Urine Ketones Negative (Negative) 10/19/22 02:45 Urine Blood 2+ (Negative) H 10/19/22 02:45 Urine Nitrite Negative (Negative) 10/19/22 02:45 Urine Bilirubin Negative (Negative) 10/19/22 02:45 Urine Urobilinogen Negative (Negative) 10/19/22 02:45 Ur Leukocyte Esterase Negative (Negative) 10/19/22 02:45 Urine WBC (Auto) 1-5 /hpf (0-5) 10/19/22 02:45 Urine RBC (Auto) 10-30 /hpf (0-4) H 10/19/22 02:45 U Hyaline Cast (Auto) 1-5 /lpf (0-5) 10/19/22 02:45 U Epithel Cells (Auto) >30 /lpf (0-5) H 10/19/22 02:45 Urine Bacteria (Auto) Negative (Negative) 10/19/22 02:45 POC Ur Test NEG (NEG) 10/19/22 02:45 SARS-CoV-2, RNA, NAAT NEGATIVE (NEGATIVE) 10/19/22 03:00 Impressions Gallbladder Ultrasound 10/19/22 02:55 ULTRASOUND RIGHT UPPER QUADRANT ABDOMEN CLINICAL HISTORY: Right upper quadrant abdominal pain. COMPARISON STUDY: No priors. TECHNIQUE: Real-time, grayscale, and color flow sonography of the right upper quadrant of the abdomen was performed. Images are reviewed in the transverse and longitudinal planes. FINDINGS: Liver: The liver is normal in size and echotexture. There is no intrahepatic biliary ductal dilatation. The main portal vein is patent. A 2.6 cm cyst is noted in the left lobe. Gallbladder: The gallbladder is normal in appearance. No gallstones are identified. There is no gallbladder wall thickening or pericholecystic fluid. A sonographic Pearson's sign is reportedly absent. The common bile duct measures up to 0.3 cm in diameter. Pancreas: Visualized portions of the pancreatic head and body are normal in appearance. Right kidney: Survey images of the right kidney demonstrate normal size and echotexture. There is no hydronephrosis. Ascites: None. IMPRESSION: Unremarkable sonographic examination of the right upper quadrant. No gallstones are identified. ACT 112: Negative or not required by law. Electronically signed by: Jose Manuel Jefferson M.D. 10/19/2022 6:05 AM Abdomen/Pelvis CT 10/19/22 03:50 CT SCAN OF THE ABDOMEN AND PELVIS WITH IV CONTRAST CLINICAL HISTORY: Mid abdominal pain. Nausea and vomiting. Diarrhea. COMPARISON STUDY: Abdominal ultrasound dated 10/19/2022. TECHNIQUE: Following the IV administration of 87 cc of Optiray 350, CT scan of the abdomen and pelvis is performed from the lung bases to the proximal femora. Images are reviewed in the axial, sagittal, and coronal planes. IV contrast was administered without complication. A dose lowering technique was utilized adhering to the principles of ALARA. CT DOSE: 397.08 mGy.cm FINDINGS: Lung bases: The heart is normal in size and without pericardial effusion. The lung bases are clear. Liver: The contrast-enhanced liver is normal in size, contour, and attenuation. There is no intrahepatic biliary ductal dilatation. The hepatic veins and portal veins are patent. There is a 2.5 cm right lobe cyst. Gallbladder: Unremarkable. Spleen: Normal in size and attenuation. Pancreas: The pancreas appears edematous, and there is peripancreatic inflammation and fluid. The gland enhances throughout. The duct is normal in caliber. No organized peripancreatic fluid collection is identified. Adrenal glands: Unremarkable. Kidneys: The contrast enhanced kidneys are normal in size and without hydronephrosis. The kidneys enhance symmetrically. Abdominal vasculature: The abdominal aorta is normal in course and caliber. Bowel: There is no bowel obstruction. A small duodenal diverticulum is incidentally noted. The appendix is well-visualized and normal. Peritoneum: There is trace perisplenic ascites, as well as fluid tracking inferiorly in the retroperitoneum and paracolic gutters. No intraperitoneal free air is identified. Lymphadenopathy: None. Pelvic viscera: The bladder, uterus, and adnexa are unremarkable as visualized noting ovarian follicles. Skeletal structures: No lytic or blastic lesions are seen. IMPRESSION: 1. Findings are consistent with acute pancreatitis. 2. The gland enhances throughout and there is no organized peripancreatic fluid collection. 3. Small volume ascites. 4. Additional findings as above. ACT 112: Negative or not required by law. Electronically signed by: Jose Manuel Jefferson M.D. 10/19/2022 6:17 AM
--- NOTE | 2022-10-20 15:08 | Gastroenterology Progress Note ---
Date of Service October 20, 2022 Assessment & Plan (1) Acute pancreatitis: Plan: Feeling better today Advance diet to low fat as tolerated Continue current therapy and supportive care HIDA with EF as an outpatient. Admission and Anticipated Discharge Date Admission Date: October 19, 2022 Subjective Feeling much better today. Still with slight pain in the mid-epigastric area, though now rated at 2-3/10 in intensity. "It feels like a gas bubble." She denies any fevers, chills, nausea, vomiting, diarrhea, hematemesis, melena, or hematochezia. She was able to tolerate liquid diet this morning. She has no further complaints. Review of Systems Review of Systems: All systems reviewed & are unremarkable except as noted in Subjective Physical Exam Constitutional: WD/WN, vitals as above Respiratory: normal respiratory effort, lungs clear to auscultation Cardiovascular: RRR, no murmur, no edema Gastrointestinal (Abdomen): Inspection/Auscultation: abdomen normal to inspection and normal bowel sounds; abdomen not distended Percussion/Palpation: + abdomen tender and abdomen soft; no guarding, abdomen not rigid and no hepatosplenomegaly Psychiatric: A+Ox3, euthymic affect Results & Data Results & Data ([facility]) Vital Signs (Past 12 Hours) Vital Signs Temp Pulse Resp BP Pulse Ox O2 Del Method 10/20/22 08:12 36.9 C 92 H 16 121/72 95 Room Air PG Care Time/CCT Total # of Minutes Spent Total Time Spent with Patient: Total time spent is greater than 50% in coordination of care (as documented) at patient's floor/unit and/or counseling patient: Coding Level of Care Code 02168 Subseq Hosp Care Lvl 3 Diagnoses Acute pancreatitis K85.90
[2022-10-21] MEDS: LACTATED RINGER'S 1,000 ML IV SCH ×3 (05:19→21:37)
[2022-10-21 07:50] LABS: Basophils # (auto) 0.02 K/uL (0-0.2); Basophils % (auto) 0.2 %; Eosinophils # (auto) 0.06 K/uL (0-0.50); Eosinophils % (auto) 0.6 %; Hematocrit (blood only) 34.9 % (34.1-44.9); Hemoglobin 11.6 g/dl (12.0-16.0); Immature Granulocytes # (auto) 0.04 K/uL (0.00-0.02); Immature Granulocytes % (auto) 0.4 %; Lymphocytes # (auto) 0.86 K/uL (1.2-3.4); Lymphocytes % (auto) 8.5 %; Mean Corpuscular Hemoglobin 28.9 pg (25.0-34.0); Mean Corpuscular Hgb Conc 33.2 g/dL (32.0-36.0); Mean Platelet Volume 10.9 fL (9.4-12.3); Monocytes # (auto) 0.63 K/uL (0.24-0.82); Monocytes % (auto) 6.2 %; Neutrophils # (auto) 8.54 K/uL (1.4-6.5); Neutrophils % (auto) 84.1 %; Platelet Count 276 K/uL (130-400); RDW Coefficient of Variation 12.6 % (11.5-14.5); RDW Standard Deviation 40.2 fL (36.4-46.3); Red Blood Count 4.01 M/uL (3.93-5.22); White Blood Count 10.15 K/ul (4.8-10.8)
[2022-10-21 08:05] LABS: BUN Creatinine Ratio 12.5 (10-20); Calcium 7.9 mg/dl (8.5-10.1); Creatinine Clr Calc Pharmacy 146.7 ml/min; Est GFR (African American) 135.4 ml/min; Est GFR (Non-African American) 116.8 ml/min; Potassium 3.5 mmol/L (3.5-5.1)
[2022-10-21] MEDS: CEROVITE ADV FORMULA TAB PO SCH (09:04)
[2022-10-21] MEDS: ENOXAPARIN INJ 40 MG/0.4 ML SYR SQ SCH (09:05)
--- NOTE | 2022-10-21 09:42 | Gastroenterology Progress Note ---
Date of Service October 21, 2022 Assessment & Plan (1) Pancreatitis: Plan: - continue with low fat diet. - she is feeling significantly better today, lipase trended down. - will need HIDA with EF as outpatient. Admission and Anticipated Discharge Date Admission Date: October 19, 2022 Supervising Physician Co-Signing Physician Notes Agree with Oswald Madrid PAC as above Abd: Soft, tender mid-epigastric, ND, +BS Continue current therapy and supportive care Subjective Patient is feeling much better today. she is tolerating diet. She had egg whites and toast this morning without issues. pain has significantly improved. epigastric in nature to palpation. rated 2/10. she had a normal bowel movement. no bleeding. no melena. Lipase improved to 457. triglycerides 173. Physical Exam Constitutional: WD/WN, vitals as above Respiratory: normal respiratory effort, lungs clear to auscultation Cardiovascular: RRR, no murmur, no edema Gastrointestinal (Abdomen): normal bowel sounds, soft, nontender, no hepatosplenomegaly Skin: no rashes, warm and dry Psychiatric: Orientation: alert and oriented x 3 Affect: euthymic affect Results & Data Results & Data ([facility]) Vital Signs (Past 12 Hours) Vital Signs Temp Pulse Resp BP Pulse Ox O2 Del Method 10/21/22 07:44 36.7 C 90 16 118/70 97 Room Air PG Care Time/CCT Total # of Minutes Spent Total Time Spent with Patient: Total time spent is greater than 50% in coordination of care (as documented) at patient's floor/unit and/or counseling patient: Coding Level of Care Code 21432 Subseq Hosp Care Lvl 2 Diagnoses Pancreatitis K85.90 Acute pancreatitis complication: unspecified Chronicity: acute Pancreatitis type: unspecified pancreatitis type (1) Pancreatitis Acute pancreatitis complication: unspecified Chronicity: acute Pancreatitis type: unspecified pancreatitis type Qualified Code(s): K85.90 - Acute pancreatitis without necrosis or infection, unspecified
--- NOTE | 2022-10-21 21:56 | Hospitalist Progress Note ---
Date of Service October 21, 2022 Assessment & Plan (1) Acute pancreatitis: Plan: Patient presented to the hospital with epigastric pain radiating to back after eating fatty meal. No history of alcohol use Lipase 14,900 CT abdomen pelvis shows findings consistent with acute pancreatitis. Ultrasound gallbladder did not show any stones. Triglyceride 173 Lipase continue trending down GI on board recommended to continue low fat diet HIDA with EF will need to arrange as outpatient by GI Pain control with Toradol and tramadol. Will d/c IVF Plan DVT Lovenox Full code Dispositionpossible discharge in a.m. if she tolerates low-fat diet and pain is well controlled. Admission and Anticipated Discharge Date Admission Date: October 19, 2022 Subjective Pt was seen and examined for follow up of abdominal pain, pancreatitis Lying in bed with no acute distress with at bedside Pt said that she feels much better She tolerated her diet She said that she does have mild abdominal pain Review of Systems Review of Systems: All systems reviewed & are unremarkable except as noted in Subjective Physical Exam Physical Exam: General- No acute distress Head- atraumatic Eyes- PERRL, EOMI, ENT- oropharynx clear Neck- supple, no JVD Lungs- clear to auscultation Heart- regular rhythm; no murmur Abdomen- normal bowel sounds, soft, +mild tender with deep palpation Extremities- no calf tenderness Neuro- alert, oriented x 3; PERRL, EOMI; no facial palsy; no dysarthria Skin- warm & dry Results & Data Results & Data ([facility]) Vital Signs (Past 12 Hours) Vital Signs Temp Pulse Resp BP Pulse Ox O2 Del Method 10/21/22 14:09 37.1 C 106 H 16 111/67 99 Room Air
[2022-10-22] MEDS: LACTATED RINGER'S 1,000 ML IV SCH (05:19)
[2022-10-22] MEDS: CEROVITE ADV FORMULA TAB PO SCH (08:24)
[2022-10-22] MEDS: ENOXAPARIN INJ 40 MG/0.4 ML SYR SQ SCH (08:24)
--- NOTE | 2022-10-22 15:02 | Discharge Summary ---
Date of Service October 22, 2022 Admission HPI Per Admitting Provider History obtained from patient and records. Medical history significant for prediabetes, hyperlipidemia. Last confinement under OB service 2001 for missed status post D&C. Yesterday morning around 1 AM, patient woke up with back pain later achy abdominal pain persisting throughout the day followed by 2 bouts of emesis. No fever, no chills. No chest pain, no shortness of breath. 2 nights ago, patient dined at a [place] restaurant where she had a relatively heavy meal. No recent EtOH intake. No prior episodes. Patient brought to the ER by her . 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 Admission Exam Per Admitting Provider GENERAL: Comfortable, pleasant, no respiratory distress SKIN: Normal color, warm HEENT: Bespectacled, [place] palpebral conjunctivae, no ptosis, moist buccal mucosa NECK : Supple, no tenderness CHEST : CTA, no tenderness HEART : RRR, no obvious murmurs ABDOMEN: Some distention, epigastric tenderness EXTREMITIES : No LE swelling/tenderness, no other conspicuous deformities noted NEUROLOGIC : Coherent, no facial asymmetry, no other gross focality Principal Diagnosis Acute pancreatitis: Discharge Exam General- No acute distress Head- atraumatic Eyes- PERRL, EOMI, ENT- oropharynx clear Neck- supple, no JVD Lungs- clear to auscultation Heart- regular rhythm; no murmur Abdomen- normal bowel sounds, soft, +mild tender with deep palpation Extremities- no calf tenderness Neuro- alert, oriented x 3; PERRL, EOMI; no facial palsy; no dysarthria Skin- warm & dry Discharge Data Allergies Allergy/AdvReac Type Severity Reaction Status Date / Time No Known Allergies Allergy Verified 12/30/02 19:13 Consultations 10/19/22 05:33 ED Decision to Admit Stat 10/19/22 06:54 Consult Gastroenterology Routine Ordered Studies Laboratory Results WBC 10.15 K/ul (4.8-10.8) 10/21/22 07:00 RBC 4.01 M/uL (3.93-5.22) 10/21/22 07:00 Hgb 11.6 g/dl (12.0-16.0) L 10/21/22 07:00 Hct 34.9 % (34.1-44.9) 10/21/22 07:00 MCV 87.0 fL (80.0-100.0) 10/21/22 07:00 MCH 28.9 pg (25.0-34.0) 10/21/22 07:00 MCHC 33.2 g/dL (32.0-36.0) 10/21/22 07:00 RDW Std Deviation 40.2 fL (36.4-46.3) 10/21/22 07:00 RDW Coeff of Chase 12.6 % (11.5-14.5) 10/21/22 07:00 Plt Count 276 K/uL (130-400) 10/21/22 07:00 MPV 10.9 fL (9.4-12.3) 10/21/22 07:00 Immature Gran % (Auto) 0.4 % 10/21/22 07:00 Neut % (Auto) 84.1 % 10/21/22 07:00 Lymph % (Auto) 8.5 % 10/21/22 07:00 Sumner % (Auto) 6.2 % 10/21/22 07:00 Eos % (Auto) 0.6 % 10/21/22 07:00 Baso % (Auto) 0.2 % 10/21/22 07:00 Neut # (Auto) 8.54 K/uL (1.4-6.5) H 10/21/22 07:00 Lymph # (Auto) 0.86 K/uL (1.2-3.4) L 10/21/22 07:00 Sumner # (Auto) 0.63 K/uL (0.24-0.82) 10/21/22 07:00 Eos # (Auto) 0.06 K/uL (0-0.50) 10/21/22 07:00 Baso # (Auto) 0.02 K/uL (0-0.2) 10/21/22 07:00 Immature Gran # (Auto) 0.04 K/uL (0.00-0.02) H 10/21/22 07:00 Sodium 136 mmol/L (136-145) 10/21/22 07:00 Potassium 3.5 mmol/L (3.5-5.1) 10/21/22 07:00 Chloride 105 mmol/L (98-107) 10/21/22 07:00 Carbon Dioxide 25 mmol/L (21-32) 10/21/22 07:00 Anion Gap 6 (3-11) 10/21/22 07:00 BUN 6 mg/dl (6-23) 10/21/22 07:00 Creatinine 0.48 mg/dl (0.6-1.2) L 10/21/22 07:00 Est Cr Clr Drug Dosing 146.7 ml/min 10/21/22 07:00 Est GFR ( Amer) 135.4 ml/min 10/21/22 07:00 Est GFR (Non-Af Amer) 116.8 ml/min 10/21/22 07:00 BUN/Creatinine Ratio 12.5 (10-20) 10/21/22 07:00 Glucose 88 mg/dl (70-99(Fasting)) 10/21/22 07:00 Calcium 7.9 mg/dl (8.5-10.1) L 10/21/22 07:00 Magnesium 1.8 mg/dl (1.7-2.4) 10/20/22 07:56 Total Bilirubin 0.9 mg/dl (0.2-1.0) D 10/20/22 07:56 AST 14 U/L (13-39) 10/20/22 07:56 ALT 16 U/L (7-52) 10/20/22 07:56 Alkaline Phosphatase 43 U/L (34-104) 10/20/22 07:56 Troponin I High Sens < 2.3 pg/ml (0-14) 10/19/22 02:45 Total Protein 5.9 gm/dl (6.0-8.3) L 10/20/22 07:56 Albumin 3.5 gm/dl (3.4-5.0) 10/20/22 07:56 Globulin 2.4 gm/dl (2.5-4.0) L 10/20/22 07:56 Albumin/Globulin Ratio 1.5 (0.9-2) 10/20/22 07:56 Triglycerides 173 mg/dl (0-150) H 10/19/22 02:45 Lipase 457 U/L (11-82) H 10/21/22 07:00 Urine Color Yellow 10/19/22 02:45 Urine Appearance Clear (Clear) 10/19/22 02:45 Urine pH 5.0 (4.5-7.5) 10/19/22 02:45 Ur Specific Butler 1.023 (1.000-1.030) 10/19/22 02:45 Urine Protein Trace (Negative) H 10/19/22 02:45 Urine Glucose (UA) Negative (Negative) 10/19/22 02:45 Urine Ketones Negative (Negative) 10/19/22 02:45 Urine Blood 2+ (Negative) H 10/19/22 02:45 Urine Nitrite Negative (Negative) 10/19/22 02:45 Urine Bilirubin Negative (Negative) 10/19/22 02:45 Urine Urobilinogen Negative (Negative) 10/19/22 02:45 Ur Leukocyte Esterase Negative (Negative) 10/19/22 02:45 Urine WBC (Auto) 1-5 /hpf (0-5) 10/19/22 02:45 Urine RBC (Auto) 10-30 /hpf (0-4) H 10/19/22 02:45 U Hyaline Cast (Auto) 1-5 /lpf (0-5) 10/19/22 02:45 U Epithel Cells (Auto) >30 /lpf (0-5) H 10/19/22 02:45 Urine Bacteria (Auto) Negative (Negative) 10/19/22 02:45 POC Ur Test NEG (NEG) 10/19/22 02:45 SARS-CoV-2, RNA, NAAT NEGATIVE (NEGATIVE) 10/19/22 03:00 Impressions Gallbladder Ultrasound 10/19/22 02:55 ULTRASOUND RIGHT UPPER QUADRANT ABDOMEN CLINICAL HISTORY: Right upper quadrant abdominal pain. COMPARISON STUDY: No priors. TECHNIQUE: Real-time, grayscale, and color flow sonography of the right upper quadrant of the abdomen was performed. Images are reviewed in the transverse and longitudinal planes. FINDINGS: Liver: The liver is normal in size and echotexture. There is no intrahepatic biliary ductal dilatation. The main portal vein is patent. A 2.6 cm cyst is noted in the left lobe. Gallbladder: The gallbladder is normal in appearance. No gallstones are identified. There is no gallbladder wall thickening or pericholecystic fluid. A sonographic Pearson's sign is reportedly absent. The common bile duct measures up to 0.3 cm in diameter. Pancreas: Visualized portions of the pancreatic head and body are normal in appearance. Right kidney: Survey images of the right kidney demonstrate normal size and echotexture. There is no hydronephrosis. Ascites: None. IMPRESSION: Unremarkable sonographic examination of the right upper quadrant. No gallstones are identified. ACT 112: Negative or not required by law. Electronically signed by: Jose Manuel Jefferson M.D. 10/19/2022 6:05 AM Abdomen/Pelvis CT 10/19/22 03:50 CT SCAN OF THE ABDOMEN AND PELVIS WITH IV CONTRAST CLINICAL HISTORY: Mid abdominal pain. Nausea and vomiting. Diarrhea. COMPARISON STUDY: Abdominal ultrasound dated 10/19/2022. TECHNIQUE: Following the IV administration of 87 cc of Optiray 350, CT scan of the abdomen and pelvis is performed from the lung bases to the proximal femora. Images are reviewed in the axial, sagittal, and coronal planes. IV contrast was administered without complication. A dose lowering technique was utilized adhering to the principles of ALARA. CT DOSE: 397.08 mGy.cm FINDINGS: Lung bases: The heart is normal in size and without pericardial effusion. The lung bases are clear. Liver: The contrast-enhanced liver is normal in size, contour, and attenuation. There is no intrahepatic biliary ductal dilatation. The hepatic veins and portal veins are patent. There is a 2.5 cm right lobe cyst. Gallbladder: Unremarkable. Spleen: Normal in size and attenuation. Pancreas: The pancreas appears edematous, and there is peripancreatic inflammation and fluid. The gland enhances throughout. The duct is normal in caliber. No organized peripancreatic fluid collection is identified. Adrenal glands: Unremarkable. Kidneys: The contrast enhanced kidneys are normal in size and without hy dronephrosis. The kidneys enhance symmetrically. Abdominal vasculature: The abdominal aorta is normal in course and caliber. Bowel: There is no bowel obstruction. A small duodenal diverticulum is incidentally noted. The appendix is well-visualized and normal. Peritoneum: There is trace perisplenic ascites, as well as fluid tracking inferiorly in the retroperitoneum and paracolic gutters. No intraperitoneal free air is identified. Lymphadenopathy: None. Pelvic viscera: The bladder, uterus, and adnexa are unremarkable as visualized noting ovarian follicles. Skeletal structures: No lytic or blastic lesions are seen. IMPRESSION: 1. Findings are consistent with acute pancreatitis. 2. The gland enhances throughout and there is no organized peripancreatic fluid collection. 3. Small volume ascites. 4. Additional findings as above. ACT 112: Negative or not required by law. Electronically signed by: Jose Manuel Jefferson M.D. 10/19/2022 6:17 AM 10/19/22 02:55 US gallbladder Urgent 10/19/22 03:50 CT Abd and Pelvis [CT abd pelvis IV con only] Urgent Hospital Course (1) Acute pancreatitis: Patient presented to the hospital with epigastric pain radiating to back after eating fatty meal. No history of alcohol use Lipase 14,900 CT abdomen pelvis shows findings consistent with acute pancreatitis. Ultrasound gallbladder did not show any stones. Triglyceride 173 Lipase continue trending down GI on board recommended to continue low fat diet HIDA with EF will need to arrange as outpatient by GI Pain control with Toradol and tramadol. Tolerated diet Clinically stable to discharge home Plan DVT Cara during hospital course Full code Dispositionpossible discharge in a.m. if she tolerates low-fat diet and pain is well controlled. Total Time Total Time Spent Total Time Spent (In Minutes): 35 minutes Discharge Plan Discharge Items Patient Disposition: Home - Self-Care Reason For Visit: PANCREATITIS Discharge Diagnosis: Acute pancreatitis: Condition on Discharge: Good Activity: Resume your previous activity Non-emergency contact: Primary Care Provider and [employer] Call non-emergency contact if: you have any medication questions, your symptoms worsen, your pain is not controlled and your temperature is above 101 Follow-up/Referrals: Helen Day DO [Primary Care Provider] - (Date & Time 10/29/2022 3:00 PM Provider Helen Day DO [facility] ) Diet: Low Fat Addtl Attending Provider Instructions: Follow up with your primary care provider 10/29/2022 3:00 PM Provider Helen Day DO [facility] Follow up with gastroenterology for oupatient work up for the pancreatitis Continue low fat diet for the next few days, then slowly advance as tolerated Seek medical attention if your symptoms reoccur Pending Studies at Discharge: No Stand-Alone Forms: My [facility], Smoking Cessation Medications and DC Order Prescriptions: Continued Multivitamin Gummies 200 mcg Tablet,Chewable 500 tab PO DAILY Discharge Orders: Discharge Order (Routine); Ordered 10/22/22 Ordered By: Lluvia Galvin/Other Patient Handouts: Low-Fat Cooking Tips, Understanding Pancreatitis, Pancreatitis Acute Dc, ED Diet, Low Fat, ED Pancreatitis Admission Data Admit Date/Time: 10/19/22 06:53 Attending Provider: Lluvia Amezquita Admit Provider: Alonso Gan Primary Care Provider: Helen Day Other Providers: Aarti Segal ; Haim Cid ; Tracy Hendricks ; Tiffany Bingham ; Nikky Dwyer ; Vivian Salazar ; Rikki Landry ; Charlotte Hernandez ; Mathieu Cortez ; Coni Payne ; Ashley Angel ; Juan Alberto Bello ; Sheila Iraheta ; Dayanara Muñoz ; Sirisha Galo ; Lisa Ryan ; José Manuel Hurley ; Oswald Madrid ; Meño Rodriguez ; Patricia Almaguer ; Brennen Salcido Jr ; Alonso Gan ; Steffen Kauffman Other Interventions: Discharge Summary Assessment (RN) Last Done: 10/22/22 15:33
== END 2022-10-22 16:45 | disposition home or self-care (01) | DRG 440 ==
LOC: ED 02:25 → EDINP 06:53 → SUATTDRO 06:53 → 3N 13:25